=== PATIENT | female | born 1950 | race Caucasian/White ===

== ENCOUNTER 2021-03-01 11:35 | Emergency (ER) | payer OTHER, MEDICARE ==
[~2021-03-01] VITALS: Ht 162.6 cm; Wt 79.4 kg
== END 2021-03-01 13:00 | disposition home or self-care (01) ==
LOC: ER 11:35
DX: S80.01XA Contusion of right knee, initial encounter (principal); Z88.6 Allergy status to analgesic agent; X50.1XXA Overexertion from prolonged static or awkward postures, initial encounter
CPT/HCPCS: 99282; A9270

== ENCOUNTER → 2024-03-24 | Outpatient (CLI) | payer MEDICARE | LOC: LAB SHORT 11:00 → LAB 11:00 | DX: L60.2 Onychogryphosis (principal); B35.1 Tinea unguium | CPT/HCPCS: 88305; 88312 ==

== ENCOUNTER 2024-10-29 09:31 | Day surgery (SDC) | payer MEDICARE, OTHER ==
[~2024-10-29] VITALS: Ht 162.6 cm; Wt 78.1 kg
[~2024-10-29 09:31] MED LIST: Balanced Salt Epinephrine Irrigation Solution 500 mL IR SCH; Lidocaine HCl/Pf 1% 5 ML VIAL XX SCH; Moxifloxacin HCL 0.5 MG/0.1 ML 0.4MLSYR LEFTEYE SCH; PHENYLEPHRINE\\TROPICAMIDE\\TETRACAINE OPHTHALMIC DILATING SOLN LEFTEYE PRN; Povidone-Iodine 450 DROP/30 ML Solution LEFTEYE SCH; Povidone-Iodine 450 DROP/30 ML Solution ONE; Tetracaine HCl/Pf 0.5% Opth Soln 4 ml ONE
[2024-10-29] MEDS ORDERED: Diazepam 2 MG Tab ONE (09:55)
[2024-10-29] MEDS ORDERED: Diazepam 5 MG Tab ONE (09:56)
[2024-10-29] MEDS ORDERED: GABA100 PO (10:15)
[2024-10-29] MEDS ORDERED: HYDCHL25 PO (10:15)
[2024-10-29] MEDS ORDERED: OMEPRAZOLE20 M2 (10:16)
[2024-10-29] MEDS ORDERED: EUTHYROX50 MC1 (10:16)
[2024-10-29] MEDS ORDERED: ACET500 (10:17)
[2024-10-29] MEDS ORDERED: VITAMIN D310 MC4 (10:18)
[2024-10-29] MEDS ORDERED: VITAMIN B (10:18)
--- NOTE | 2024-10-29 10:43 | NUR ---
10/29/24 Ming3 Essie Mark 7 MG PO VALIUM GIVEN AT 1011 PER ORDERS. PT REPORTED ANXIETY LEVEL OF 4/10 AT 1011.
[2024-10-29 11:14] VITALS: BP 115/73
== END 2024-10-29 11:20 | disposition home or self-care (01) ==
LOC: ORSCSDS 09:31
PROVIDERS: Student in an Organized Health Care Education/Training Program
PROC: 08RK3JZ Replacement of Left Lens with Synthetic Substitute, Percutaneous Approach (ICD-10-PCS; principal; 2024-10-29 11:00)
DX: H25.813 Combined forms of age-related cataract, bilateral (principal); H53.001 Unspecified amblyopia, right eye; I10 Essential (primary) hypertension; K21.9 Gastro-esophageal reflux disease without esophagitis; Z79.899 Other long term (current) drug therapy
CPT/HCPCS: A9270; V2632

== ENCOUNTER 2024-11-04 06:59 | Day surgery (SDC) | payer MEDICARE ==
[~2024-11-04] VITALS: Ht 162.6 cm; Wt 77.5 kg
[~2024-11-04 06:59] MED LIST changes: +ACET500; +EUTHYROX50 MC1; +GABA100 PO; +HYDCHL25 PO; +Lidocaine HCl/Pf 1% 5 ML VIAL ONE; -Moxifloxacin HCL 0.5 MG/0.1 ML 0.4MLSYR LEFTEYE SCH; +Moxifloxacin HCL 0.5 MG/0.1 ML 0.4MLSYR RIGHTEYE SCH; +OMEPRAZOLE20 M2; -PHENYLEPHRINE\\TROPICAMIDE\\TETRACAINE OPHTHALMIC DILATING SOLN LEFTEYE PRN; +PHENYLEPHRINE\\TROPICAMIDE\\TETRACAINE OPHTHALMIC DILATING SOLN RIGHTEYE PRN; -Povidone-Iodine 450 DROP/30 ML Solution LEFTEYE SCH; +Povidone-Iodine 450 DROP/30 ML Solution RIGHTEYE SCH; +VITAMIN B; +VITAMIN D310 MC4
[2024-11-04] MEDS ORDERED: Diazepam 2 MG Tab ONE (07:18)
[2024-11-04] MEDS ORDERED: Diazepam 5 MG Tab ONE (07:19)
--- NOTE | 2024-11-04 08:14 | NUR ---
11/04/24 0814 Sadie Lemon PT CURRENTLY RATES ANXIETY 0/10. CALL LIGHT IN PT'S HAND
[2024-11-04 08:57] VITALS: BP 104/66
== END 2024-11-04 09:05 | disposition home or self-care (01) ==
LOC: ORSCSDS 06:59
PROVIDERS: Student in an Organized Health Care Education/Training Program
PROC: 08RJ3JZ Replacement of Right Lens with Synthetic Substitute, Percutaneous Approach (ICD-10-PCS; principal; 2024-11-04 08:30)
DX: H25.811 Combined forms of age-related cataract, right eye (principal); Z96.1 Presence of intraocular lens; H53.001 Unspecified amblyopia, right eye; K21.9 Gastro-esophageal reflux disease without esophagitis; I10 Essential (primary) hypertension; E07.9 Disorder of thyroid, unspecified; Z79.899 Other long term (current) drug therapy
CPT/HCPCS: A9270; J2003; V2632